=== PATIENT | female | born 1955 | race Caucasian/White ===

== ENCOUNTER 2019-06-11 00:09 | Emergency (ER) | payer MEDICARE, OTHER, SELFPAY ==
[2019-06-11 00:56] VITALS: BP 164/93; PULSE 88; RESP 16; TEMP 36.6; O2SAT 95
--- NOTE | 2019-06-11 01:22 | ED.EPISTAXIS ---
HPI - Epistaxis General Chief complaint: Epistaxis Stated complaint: nose bleed Time Seen by Provider: 06/11/19 01:15 Source: patient and RN notes reviewed Mode of arrival: ambulatory Limitations: no limitations History of Present Illness HPI Narrative: A 64 y/o female presents to the ED with constant epistaxis for the past 8 hours. She states that she was placed on Warfarin 4 days ago for her recently dx a-fib and that everyday since she has had epistaxis. She reports that the past days she has been able to get the epistaxis to stop, but that today she couldn't so she decided to come to the ED. She notes a mild dry cough and some lightheadedness when she goes from sitting to standing. She also notes she has used a nose clamp but denies it alleviating her epistaxis. She also denies any rhinorrhea, fevers, chills, sweats, SOB, or CP. complaint: epistaxis Onset (ago): hour(s) (8) Duration: constant Context: history of previous and warfarin use Associated symptoms: other (mild dry cough and lightheadedness when going from sitting to standing) Treatment prior to arrival: nasal clamp Related Data Home Medications Medication Instructions Recorded Confirmed metoprolol succinate 100 mg 100 mg PO DAILY 04/05/19 05/26/19 tablet,extended release 24 hr venlafaxine 75 mg tablet 75 mg PO BID 04/05/19 05/26/19 Allergies Allergy/AdvReac Type Severity Reaction Status Date / Time tramadol Allergy Unknown emesis Verified 05/26/19 15:00 Review of Systems Review of Systems: All systems reviewed & are unremarkable except as noted in HPI and below Constitutional: Constitutional: Denies chills, Denies fever(s) and Denies other (sweats) ENT: Reports epistaxis and Denies nasal discharge Cardiovascular: Cardiovascular: Denies chest pain and Reports lightheadedness (when going from sitting to standing) Respiratory: Respiratory: Reports cough (mild dry) and Denies dyspnea PMFSH Past Medical History Medical History (Updated 06/11/19 @ 03:06 by Erik Amin MD) A-fib Anxiety Bronchitis Depression Endometriosis Essential hypertension GERD (gastroesophageal reflux disease) H/O: HTN (hypertension) History of rectal polyps Hypersomnia Mixed hyperlipidemia Moderate episode of recurrent major depressive disorder Obesity PAF (paroxysmal atrial fibrillation) Psychophysiological insomnia Right wrist fracture Sinusitis, chronic Subacute sinusitis Surgical History Surgical History (Updated 06/11/19 @ 01:51 by Rodney Scott) History of cholecystectomy History of lumpectomy of right breast History of tonsillectomy Hx of hysterectomy Family History Family History (Updated 07/14/17 @ 14:14 by DOCTOR UNKNOWN) Mother Family history of malignant neoplasm, Onset Age: 64 Father FH myocardial infarction male first degree age known, Onset Age: 75 Social History Social History (Updated 05/06/19 @ 10:06 by Angelika Schaefer) Smoking status: Never smoker Second hand tobacco smoke exposure: No Alcohol intake: never Substance use: never Substance use type: does not use Gender identity (if verbalized by the patient): Female Exam Narrative: Exam Narrative: GENERAL: Well-appearing, well-nourished, and in no acute distress. HEAD: Normocephalic, atraumatic. ENT: Mucous membranes moist. Trace oozing of blood from the left naris. EXTREMITIES: Normal range of motion. Normal strength. NEURO: Alert and oriented x3. PSYCH: Normal mood and affect. Course Course Emergency Course: Bleeding stopped with direct pressure and Afrin administration. Discussed problem solving nosebleeds as well as holding her Coumadin until contacting Dr. Fernández's office and having repeat INR drawn on Thursday. Consultations Consultation #1: Discussed case with Dr. Fernández (Cardiology). Suggests that the pt stop the Warfarin and call their office to have a follow up INR on Thursday. Date: 06/11/19 Time: 02:51 Vital Signs Vital signs: Vital S
[2019-06-11] MEDS: OXYMETAZOLINE HCL 0.05% NAS 15 ML BTL (*BKC) 1 SPRAY (01:35)
[2019-06-11 02:19] LABS: Basophils Absolute Auto 0.1 K/mm3 (0.0-0.1); Basophils Percent Auto 0.4 % (0.2-1.2); Eosinophils Absolute Auto 0.2 K/mm3 (0-0.3); Eosinophils Percent Auto 1.4 % (0-4.4); Hematocrit 42.1 % (37.0-47.0); Hemoglobin 13.6 g/dL (12.0-15.0); Immature Granulocyte Absolute 0.08 K/mm3 (0.00-0.031); Immature Granulocyte Percent A 0.5 % (0-0.5); Lymphocytes Absolute Auto 4.43 K/mm3 (0.9-3.2); Lymphocytes Percent Auto 27.6 % (18.3-44.2); Mean Corpuscular HGB Conc 32.3 g/dl (32-36); Mean Corpuscular Hemoglobin 29.6 pg (26-34); Mean Corpuscular Volume 91.5 fl (80-100); Monocytes Absolute Auto 1.7 K/mm3 (0.1-0.6); Monocytes Percent Auto 10.5 % (2.6-8.5); Neutrophils Absolute Auto 9.6 K/mm3 (1.3-6.7); Neutrophils Percent Auto 59.6 % (45.5-73.1); Platelet Count Result 332 k/mm3 (150-375); Red Cell Distribution Width 13.1 % (11.5-14.5); White Blood Count 16.1 K/mm3 (4.5-10.0)
[2019-06-11 02:29] LABS: INR 4.9; Prothrombin Time 45.4 Seconds (11.1-14.7)
[2019-06-11 02:30] LABS: Blood Urea Nitrogen 25 mg/dL (7-17); Calcium 9.1 mg/dL (8.4-10.2); Carbon Dioxide 31 mmol/L (22-30); Chloride 99 mmol/L (98-107); Estimated Glomerular Filt Rate > 60; Glucose 90 mg/dL (65-105); Potassium 3.6 mmol/L (3.4-5.0); Sodium 140 mmol/L (137-145)
[2019-06-11 02:38] VITALS: BP 146/88; PULSE 94; RESP 16; O2SAT 95
== END 2019-06-11 03:24 | disposition home or self-care (01) ==
PROVIDERS: Emergency Provider Emergency Medicine; PCP Family Medicine
DX: R04.0 Epistaxis (principal); T45.515A Adverse effect of anticoagulants, initial encounter; I48.0 Paroxysmal atrial fibrillation; F41.9 Anxiety disorder, unspecified; F32.9 Major depressive disorder, single episode, unspecified; I10 Essential (primary) hypertension; N80.9 Endometriosis, unspecified; E78.2 Mixed hyperlipidemia; E66.9 Obesity, unspecified; K21.9 Gastro-esophageal reflux disease without esophagitis
CPT/HCPCS: 36415; 80048; 85025; 85610; 99283; A9270

== ENCOUNTER 2019-06-15 15:12 | Outpatient (CLI) | payer MEDICARE, OTHER, SELFPAY ==
[2019-06-15 16:05] LABS: INR 1.2; Prothrombin Time 14.4 Seconds (11.1-14.7)
== END 2019-06-15 15:13 | disposition home or self-care (01) ==
PROVIDERS: PCP Family Medicine; Visit Provider Internal Medicine Cardiovascular Disease
DX: I48.0 Paroxysmal atrial fibrillation (principal)
CPT/HCPCS: 36415; 85610

== ENCOUNTER 2019-06-24 08:44 | Outpatient (CLI) | payer MEDICARE, OTHER, SELFPAY ==
--- NOTE | 2019-07-11 20:42 | SLEEP_ITS ---
Nocturnal Polysomnogram. DATE OF STUDY: 06/24/2019 ORDERING PHYSICIAN: Tigre Fernández D.O. REASON FOR THIS STUDY: Hypersomnia. HISTORY: This patient is a 64-year-old female, 65 inches tall, weighing 240 pounds with a body mass index of 39.9. She has a history of sleeping 8 hours at night, but waking often at night. She feels exhausted during the daytime. Her brother and sister, both have sleep apnea. She uses prescription, Ambien to help with the quality of sleep, but it is not helping. She constantly awakens from sleep short of breath, constantly snoring and the snoring is loud enough that others complain about it. She rarely awakens with heartburn or belching. She constantly has trouble sleeping with a cold, constantly gasps for breath at night, constantly has breathing problems witnessed by others. She frequently sweats excessively at night and notices her heart pounding or beating irregularly at night. She constantly falls asleep during the day, rarely involuntarily, never while driving, never with physical effort and she does not fall asleep with laughing or crying. She does not have loss of muscle tone with strong emotion. She does not have daytime difficulties due to excessive sleepiness, as she is currently retired. She does not feel paralyzed on waking or falling asleep. She rarely has vivid dreamlike scenes upon awakening or falling asleep. She rarely is afraid to go to sleep. She occasionally has nightmares. She rarely remembers her dreams, rarely has racing thoughts, occasionally has sadness, depression and anxiety. She occasionally has muscular tension and notices parts of her body jerking. She occasionally kicks at night. She rarely has crawling and aching feelings in her legs. She occasionally has leg pain at night. She rarely has morning jaw pain, rarely grinds her teeth at night, rarely is bothered by pain during the day or is awakened with pain at night. She occasionally wakes up feeling stiff in the morning with sore achy muscles. She occasionally has pain in her neck and spine. She has fatigue, takes sedatives, has memory problems and insomnia. She has depression. She goes to bed at midnight using Ambien, which helps her fall asleep within 15 minutes, waking once or twice at night. If she awakens at night, she will stay in bed or turn on the television. She wakes in the morning at 09:00 a.m. On the weekends, she goes to bed at 01:00 a.m., and wakes at 10:00 a.m. She does take naps. A short naps are not refreshing. She is drowsy in the morning for 3 hours or longer. MEDICAL COMORBIDITIES: Depression, hypertension, insomnia, nasal allergies, heart disease. MEDICATIONS: 1. Venlafaxine 75 mg a day. 2. Toprol-XL 100 mg a day. 3. Zolpidem 10 mg at night. 4. Lisinopril 12.5/20 one daily. HABITS: Never smoked tobacco. Caffeine, 3 servings per day. No alcohol. DESCRIPTION OF THE STUDY: On the [place] Sleepiness Scale, her score is 6. This was conducted as a basic nocturnal polysomnogram using the ProPerforma multiple channel system including EOG, EEG, submental EMG, EKG, nasal and oral airflow using thermistors and nasal pressure sensors, chest and abdominal belts, body position data and pulse oximetry. This study was scored using CMS guidelines. Duration of the study was 419.1 minutes. Sleep time was 306.8 minutes. Sleep efficiency was 73.2%. Sleep latency was prolonged at 46.4 minutes. There was no REM. The patient had 33 awakenings and spent 17.7% of the study awake after sleep onset, 66 minutes. Sleep architecture showed 11.7% stage 1 sleep, 70.6% stage 2 sleep, no stage 3 sleep, and no stage REM. Sleep architecture was abnormal with a prolonged sleep latency, mainly stage 2 sleep with constant shifts between stage I, stage II, and
== END 2019-06-24 08:45 | disposition home or self-care (01) ==
LOC: ANHCSM 08:45
PROVIDERS: PCP Family Medicine; Visit Provider Internal Medicine Cardiovascular Disease
DX: G47.33 Obstructive sleep apnea (adult) (pediatric) (principal)
CPT/HCPCS: 95810

== ENCOUNTER 2020-01-25 02:33 | Outpatient (CLI) | payer MEDICARE, OTHER, SELFPAY ==
[2020-01-25 18:24] LABS: SARS-CoV-2 RNA PCR Negative
== END 2020-01-25 02:34 | disposition home or self-care (01) ==
LOC: ANHCOVIDDT 02:34
PROVIDERS: PCP Family Medicine; Visit Provider Internal Medicine Critical Care Medicine
DX: Z20.828 Contact with and (suspected) exposure to other viral communicable diseases (principal)
CPT/HCPCS: 87635; C9803; U0003

== ENCOUNTER 2020-01-27 05:47 | Outpatient (CLI) | payer MEDICARE, OTHER, SELFPAY ==
--- NOTE | 2020-02-25 12:49 | WPDSLEEPSTUD ---
Sleep Study Date of Study: 01/27/20 Ordering Provider: Tigre Fernández DO Interpreting Physician: Ada Aguilar MD Sleep Study Type: CPAP Titration Height: 1.65 m Weight: 114.305 kg Body Mass Index: 41.9 [place]: 6 Reason for Sleep Study June 24, 2019 basic nocturnal polysomnogram showing moderate obstructive sleep apnea with an AHI of 24.7 with absence of REM, desaturation 85%. Sleep History Tiffanie Cantu is a 65-year-old female with a history of a (+) basic study in May,. She has a history of sleeping 8 hours at night, but waking often at night. She feels exhausted during the daytime. Her brother and sister, both have sleep apnea. She has used prescription Ambien to help with the quality of sleep, but it is not helping. She constantly awakens from sleep short of breath, constantly snoring and the snoring is loud enough that others complain about it. She rarely awakens with heartburn or belching. She constantly has trouble sleeping with a cold, constantly gasps for breath at night, constantly has breathing problems witnessed by others. She frequently sweats excessively at night and notices her heart pounding or beating irregularly at night. She constantly falls asleep during the day, rarely involuntarily, never while driving, never with physical effort and she does not fall asleep with laughing or crying. She does not have loss of muscle tone with strong emotion. She does not have daytime difficulties due to excessive sleepiness, as she is currently retired. She does not feel paralyzed on waking or falling asleep. She rarely has vivid dreamlike scenes upon awakening or falling asleep. She rarely is afraid to go to sleep. She occasionally has nightmares. She rarely remembers her dreams, rarely has racing thoughts, occasionally has sadness, depression and anxiety. She occasionally has muscular tension and notices parts of her body jerking. She occasionally kicks at night. She rarely has crawling and aching feelings in her legs. She occasionally has leg pain at night. She rarely has morning jaw pain, rarely grinds her teeth at night, rarely is bothered by pain during the day or is awakened with pain at night. She occasionally wakes up feeling stiff in the morning with sore achy muscles. She occasionally has pain in her neck and spine. She has fatigue, takes sedatives, has memory problems and insomnia. She has depression. She goes to bed at midnight using Ambien, which helps her fall asleep within 15 minutes, waking once or twice at night. If she awakens at night, she will stay in bed or turn on the television. She wakes in the morning at 09:00 a.m. On the weekends, she goes to bed at 01:00 a.m., and wakes at 10:00 a.m. She does take naps. A short naps are not refreshing. She is drowsy in the morning for 3 hours or longer. HABITS: Never smoked tobacco. Caffeine, 3 servings per day. No alcohol. [facility] Past Medical History Medical History (Updated 02/25/20 @ 13:15 by Ada Aguilar MD) A-fib Anxiety Bronchitis Depression Endometriosis Essential hypertension GERD (gastroesophageal reflux disease) H/O: HTN (hypertension) History of rectal polyps Hypersomnia Mixed hyperlipidemia Moderate episode of recurrent major depressive disorder Obesity Obstructive sleep apnea (~05/2019) PAF (paroxysmal atrial fibrillation) Psychophysiological insomnia Right wrist fracture Sinusitis, chronic Sleep disorder Subacute sinusitis Surgical History Surgical History History of cholecystectomy History of lumpectomy of right breast History of tonsillectomy Hx of hysterectomy Family History Family History Mother Family history of malignant neoplasm, Onset Age: 64 Father FH myocardial infarction male first degree age known, Onset Age: 75 Social History Social History (Reviewed 02/25/20 @ 12:55 by Lashonda
[2020-02-25 13:28] VITALS: BMI 41.9
== END 2020-01-27 05:48 | disposition home or self-care (01) ==
PROVIDERS: PCP Family Medicine; Visit Provider Internal Medicine Cardiovascular Disease
DX: G47.33 Obstructive sleep apnea (adult) (pediatric) (principal)
CPT/HCPCS: 95811

== ENCOUNTER → 2020-09-25 14:53 | Outpatient (CLI) | payer MEDICARE, OTHER, SELFPAY ==
--- NOTE | ~2020-09-25 | MM_ITS ---
EXAMINATION: MM screening juan BI w lexis HISTORY: Screening TECHNIQUE: Craniocaudal and mediolateral oblique 3-D tomosynthesis images were obtained and synthetic 2-D images were generated. CAD analysis was submitted and interpreted. COMPARISON: Comparison to multiple prior studies sequentially, with oldest reviewed study dated 08/19. BREAST PARENCHYMAL COMPOSITION: The breasts are heterogeneously dense, which may obscure small masses . FINDINGS: There is no evidence of suspicious mass, calcification, or architectural distortion to sugg est malignancy in either breast. There has been no suspicious interval change. IMPRESSION: 1. No mammographic evidence of malignancy. 2. Recommend routine screening mammography in one year. BI-RADS Category 1: Negative Reviewed, dictated and finalized at location A.
== END ==
PROVIDERS: PCP Family Medicine; Visit Provider Physician Assistant
DX: Z12.31 Encounter for screening mammogram for malignant neoplasm of breast (principal)
CPT/HCPCS: 77063; 77067

== ENCOUNTER → 2020-11-26 14:52 | Outpatient (CLI) | payer MEDICARE, OTHER, SELFPAY ==
--- NOTE | ~2020-11-26 | XR_ITS ---
XR chest 2V DATE: 11/26/2020 15:50 INDICATION: Cough TECHNIQUE: 2 views COMPARISON: 01/15/2019 PA and lateral chest 01/15/2019 CT pulmonary scan FINDINGS: Normal heart size. There is aortic unfolding. No hilar or mediastinal enlargement. No pulmonary infiltrate or consolidation, pleural effusion or pulmonary vascular congestion or pneumo thorax. Degenerative spurring of the thoracic spine. IMPRESSION: No active cardiopulmonary disease Reviewed, dictated and finalized at location B.
== END ==
PROVIDERS: PCP Family Medicine; Visit Provider Physician Assistant
DX: R05 Cough (principal)
CPT/HCPCS: 71046

== ENCOUNTER 2021-01-21 16:59 | Emergency (ER) | payer MEDICARE, OTHER, SELFPAY ==
[2021-01-21 17:21] VITALS: BP 131/93; PULSE 54; RESP 18; TEMP 36.1; O2SAT 99
--- NOTE | 2021-01-21 18:51 | ED.URI ---
HPI - URI/Sore Throat General Chief Complaint: Upper Respiratory Infection Stated Complaint: Runny Nose, Cough Source: patient and RN notes reviewed Limitations: no limitations History of Present Illness HPI Narrative: The vaccinated patient, non-smoker/nondrinker, presents with a couple day history of cough, scratchy throat. No fever measured, wheezing, earache;no loss of taste/smell, CP, vomiting/diarrhea,S OB. Symptoms are mild unrelieved with OTC preparations like Flonase, and she has allergy triggers [a pet ] at home Related Data Home Medications Medication Instructions Recorded Confirmed cetirizine 10 mg tablet 10 mg PO DAILY PRN 05/10/20 01/21/21 Allergies Allergy/AdvReac Type Severity Reaction Status Date / Time tramadol Allergy Unknown emesis Verified 11/06/20 15:55 lisinopril AdvReac Intermediate cough Uncoded 11/06/20 15:55 Review of Systems Review of Systems: General/Constitutional: No weight loss,fever Eyes: N0: Redness,discharge Ears/Nose/Throat: No: Epistaxis,ear discharge Respiratory: Denies: Hemoptysis Gastrointestinal: No Vomiting, Bleeding-rectal Skin: No Lumps, eruption Neurologic: No Focal Weakness,Sz Hematologic: Denies: Petechiae/Purpura Psychiatric: No: Suicida ideationl All Other Systems: Reviewed and Negative [facility] Past Medical History Medical History (Updated 01/21/21 @ 18:54 by Leonardo Zhou MD) A-fib Anxiety BMI 39.0-39.9,adult Bronchitis Depression Endometriosis Essential hypertension GERD (gastroesophageal reflux disease) H/O: HTN (hypertension) History of rectal polyps Hypersomnia Mixed hyperlipidemia Moderate episode of recurrent major depressive disorder Obesity Obstructive sleep apnea (01/2020) PAF (paroxysmal atrial fibrillation) Psychophysiological insomnia Right wrist fracture Sinusitis, chronic Sleep disorder Subacute sinusitis Surgical History Surgical History History of cholecystectomy History of lumpectomy of right breast History of tonsillectomy Hx of hysterectomy Family History Family History Mother Family history of malignant neoplasm, Onset Age: 64 Father FH myocardial infarction male first degree age known, Onset Age: 75 Social History Social History (Updated 11/06/20 @ 15:56 by Angelika Toro Social History: Smoking status: Never smoker Second hand tobacco smoke exposure: No Alcohol intake: never Substance use: never Substance use type: does not use Gender identity (if verbalized by the patient): Female Sexual Orientation (if Verbalized by the Patient): Straight or Heterosexual Comments At time of signature, agree with nursing past medical, surgical, social and family history. There is no relevant family history pertinent to the presenting complaint Exam Narrative: General Appearance: Well appearing, overweight/well nourished EYE: PERRLA, Conjunctiva clear Ears: Auditory canal normal, TM normal Nose: Rhinorrhea, Mucousal erythema Mouth/Throat: MM moist, Uvula midline, Pharyngeal erythema Neck: Supple, No adenopathy Respiratory: No respiratory distress, distant BS equal, CTA decreased at bases Cardiovascular: No JVD Musculoskeletal: Non tender, Normal strength Skin: Warm, Dry Neurological: A&O x3, CN II-XII intact Psychiatric: Normal mood, Normal affect Course Vital Signs Vital signs: Vital Signs Temperature 97.0 F L 01/21/21 17:21 Pulse Rate 54 L 01/21/21 17:21 Respiratory Rate 18 01/21/21 17:21 Blood Pressure 131/93 H 01/21/21 17:21 Pulse Oximetry 99 01/21/21 17:21 Temperature 97.0 F L 01/21/21 17:21 Pulse Rate 54 L 01/21/21 17:21 Respiratory Rate 18 01/21/21 17:21 Blood Pressure 131/93 H 01/21/21 17:21 Pulse Oximetry 99 01/21/21 17:21 MDM - URI/Sore Throat Lab Data Labs: Lab Results 01/21/21 Range/Units 18:23
== END 2021-01-21 19:03 | disposition home or self-care (01) ==
PROVIDERS: Emergency Provider Emergency Medicine; PCP Family Medicine
DX: R05 Cough (principal); I48.91 Unspecified atrial fibrillation; I10 Essential (primary) hypertension; E78.2 Mixed hyperlipidemia; Z20.822 Contact with and (suspected) exposure to COVID-19
CPT/HCPCS: 87426; 99213; C9803; G0463

== ENCOUNTER 2021-02-15 07:47 | Outpatient (CLI) | payer MEDICARE, OTHER, SELFPAY ==
--- NOTE | 2021-03-04 14:26 | WPDSLEEPSTUD ---
Sleep Study Date of Study: 02/15/21 <Tori Stevens DO - Last Filed: 03/04/21 15:56> Ordering Provider: Tigre Fernández DO <Tori Stevens, - Last Filed: 03/04/21 15:56> Interpreting Physician: Tori Stevens DO <Tori Stevens, - Last Filed: 03/04/21 15:56> Sleep Study Type: Split Polysomnogram <Tori Stevens - Last Filed: 03/04/21 15:56> Height: 1.65 m <Tori Stevens - Last Filed: 03/04/21 15:56> Weight: 108.862 kg <Tori Stevens - Last Filed: 03/04/21 15:56> Body Mass Index: 39.9 <Tori Stevens - Last Filed: 03/04/21 15:56> Neck Circumference (inches): 14 <Tori Stevens - Last Filed: 03/04/21 15:56> [place]: 7 <Tori Stevens - Last Filed: 03/04/21 15:56> Reason for Sleep Study The patient has loud snoring, witnessed apneas and multiple nighttime awakenings. <Tori Stevens, Last Filed: 03/04/21 15:56> Sleep History The patient is a 66-year-old female with hypertension, atrial fibrillation, depression and previously diagnosed DANE that had a Split Night study ordered sleep disturbances. The patient had a PSG on 06/24/2019 that showed an AHI of 24.7 and an elevated limb movement index. She had a PAP Titration study on 01/27/2020 where she was recommended a prescription of CPAP 12 cm H2O with an EPR of 2. The patient stopped using the machine because she didn't like the mask she was given. The patient states that she wakes up several times per night from snoring and apneas. She states that this happens almost every night for the past several months. She constantly awakens from sleep short of breath. She constantly awakens at night with heartburn, belching or cough. She constantly snores loud enough that others complain. She constantly has troubles when she has a cold. She constantly wakes up gasping for air throughout the night. She constantly has breathing problems at night observed by others. She denies sweating excessively at night. She occasionally has heart palpitations or irregular heartbeats during the night. She frequently falls asleep during the day but never while driving. She denies sleep paralysis and cataplexy. She rarely experiences vivid dreamlike scenes upon awakening or falling asleep. She rarely has nightmares. She occasionally feels sad or depressed. She rarely has anxiety. She occasionally notices parts of her body jerk. He occasionally kicks during the night. She denies having crawling and aching feelings in her legs but rarely has leg pain during the night. She denies grinding her teeth during sleep when awakening with jaw pain morning. She denies being bothered by pain during the day and being awakened by pain during the night. He rarely wakes up feeling stiff morning with sore and achy muscles. She goes to bed at 2:00 a.m. on both the weekdays and weekends. It takes her about 10 minutes to fall asleep. She wakes up 1-2 times per night for unknown reasons. It takes her about 10 minutes to fall asleep. She wakes up at 10:00 a.m. on the weekdays and at noon the weekends. She typically gets 8 hours of sleep per night. She will stay in bed for 10 minutes after waking up. She is currently . She lives with her sister and 2 teenagers. She consumes caffeinated beverages within 2 hours of going to sleep. She does not engage in physical exercise before bedtime. She will read and watch television before falling asleep. She will take naps during the afternoon or the evening but they refreshing. She drinks 2-3 caffeinated teas per day. She denies tobacco, alcohol and recreational drug use. <Tori Stevens DO - Last Filed: 03/04/21 15:56> [facility] Past Medical History Medical History: Medical History A-fib Anxiety BMI 39.0-39.9,adult Bronchitis Depression Endometriosis Essential
[2021-03-04 14:48] VITALS: BMI 39.9
== END 2021-02-16 07:45 | disposition home or self-care (01) ==
LOC: ANHCSM 07:48
PROVIDERS: PCP Family Medicine; Visit Provider Internal Medicine Cardiovascular Disease
DX: G47.33 Obstructive sleep apnea (adult) (pediatric) (principal); I48.0 Paroxysmal atrial fibrillation
CPT/HCPCS: 95811

== ENCOUNTER 2021-08-12 08:55 | Outpatient (CLI) | payer MEDICARE, OTHER, SELFPAY ==
--- NOTE | ~2021-08-12 | NM_ITS ---
EXAMINATION: NM gaby stress w perfusion DATE: 08/12/2021 10:52 INDICATION: Other chest pain. TECHNIQUE: Rest images were obtained following intravenous administration of 10.2 mCi Tc99m tetrofosm in (Myoview). The patient was infused intravenously with Lexiscan (regadenoson). Then, 29.48 mCi Tc99 m tetrofosmin (Myoview) was administered intravenously, and stress images were obtained. Data was rec onstructed into short axis and horizontal and vertical long axis SPECT images. Gated SPECT images wer e also obtained. COMPARISON: Chest CT 01/15/2019, chest 2 views 11/26/2020 FINDINGS: There is no definite reversible or fixed perfusion abnormality to suggest ischemia or infar ction. There is no segmental wall motion abnormality. Left ventricular ejection fraction measures > 70%. IMPRESSION: 1. No definite ischemia or infarct. 2. Normal left ventricular ejection fraction measuring >70%. Reviewed, dictated and finalized at location B.
--- NOTE | 2021-08-12 09:06 | EST_ITS ---
Patient Info Name: Tiffanie Cantu Age: 66 years : 1955 Gender: Female Ht: 65 in Wt: 225 lbs BSA: 2.21 m2 Exam Date: 08/12/2021 9:48 AM Exam Location: [facility] Stress Patient Status: Outpatient Admit Date: 08/12/2021 Staff Ordering Physician: Tigre Fernández DO Attending Provider: Tigre Fernández DO Exercise Technologist: Yesy Garcia RDCS Exercise Physician: Tigre Fernández DO Exam Type: CA stress gaby w NM Study Info Indications R07.9 - Chest pain, unspecified A regadenoson stress test was performed. Summary 1. 1. Negative lexiscan stress test for ischemic ST changes by ECG criteria. 2. 2. Baseline hypertension. 3. 3. Nuclear scan to follow and will be reported separately. Please correlate with it. 4. 4. Patient informed of the above results. Protocol: Lexiscan Stress ECG Details Stage: REST Duration (min): 5 min : 18 sec HR (bpm): 63 SBP (mmHg): 147 DBP (mmHg): 94 Stage: REST Duration (min): 5 min : 33 sec HR (bpm): 67 SBP (mmHg): 147 DBP (mmHg): 94 Stage: REST Duration (min): 17 min : 28 sec HR (bpm): 65 SBP (mmHg): 147 DBP (mmHg): 94 Stage: STAGE 1 Duration (min): 1 min : 0 sec HR (bpm): 75 SBP (mmHg): 149 DBP (mmHg): 92 Stage: RECOVERY Duration (min): 1 min : 0 sec HR (bpm): 82 SBP (mmHg): 149 DBP (mmHg): 92 Stage: RECOVERY Duration (min): 2 min : 0 sec HR (bpm): 72 SBP (mmHg): 166 DBP (mmHg): 87 Stage: RECOVERY Duration (min): 3 min : 0 sec HR (bpm): 71 SBP (mmHg): 168 DBP (mmHg): 84 Stage: RECOVERY Duration (min): 4 min : 0 sec HR (bpm): 80 SBP (mmHg): 168 DBP (mmHg): 84 Stage: RECOVERY Duration (min): 5 min : 0 sec HR (bpm): 72 SBP (mmHg): 183 DBP (mmHg): 89 Stage: RECOVERY Duration (min): 6 min : 0 sec HR (bpm): 71 SBP (mmHg): 183 DBP (mmHg): 89 Stage: RECOVERY Duration (min): 7 min : 0 sec HR (bpm): 72 SBP (mmHg): 184 DBP (mmHg): 88 Stage: RECOVERY Duration (min): 7 min : 4 sec HR (bpm): 75 SBP (mmHg): 184 DBP (mmHg): 88 Rest HR: 65 bpm Peak HR: 82 bpm Rest Sys BP: 147 mmHg Peak Sys BP: 184 mmHg Max Pred HR: 152 bpm % Max Pred HR: 54 % Target HR: 129 bpm Max RPP: 15,088 bpm*mmHg Termination Reason: Completed protocol Cardiac Symptoms: Shortness of breath Total Time: 1 min : 0 sec Rest Rodriguez BP: 94 mmHg Peak Rodriguez BP: 88 mmHg Total Dose: 0.4 mg Resting ECG Sinus rhythm. Stress ECG No ST changes. Arrhythmias None. Report Signatures
== END 2021-08-12 08:56 | disposition home or self-care (01) ==
PROVIDERS: PCP Family Medicine; Visit Provider Internal Medicine Cardiovascular Disease
DX: R07.89 Other chest pain (principal)
CPT/HCPCS: 78452; 93017; A9502; J2785

== ENCOUNTER → 2022-06-05 13:06 | Outpatient (CLI) | payer MEDICARE, OTHER, SELFPAY ==
--- NOTE | ~2022-06-05 | DEXA_ITS ---
Bone Density Report Name: MARINA EMERSON Age: 67 Sex: Female Ethnicity: White Date of : 1955 Indication: postmenopausal; screening for osteoporosis; height loss; hysterectomy; Referring Provider: CLAUS SHAVER Study: Bone densitometry was performed. Exam Date: June 05, 2022 Accession number: [id number] Bone Density: Region BMD T-score Z-score Classification AP Spine (L1, L2, L3) 1.493 4.3 6.3 Normal Femoral Neck (Left) 0.955 1.0 2.7 Normal Total Hip (Left) 1.027 0.7 2.2 Normal Femoral Neck (Right) 0.993 1.3 3.1 Normal Total Hip (Right) 1.056 0.9 2.4 Normal Total Hip Mean 1.042 0.8 2.3 Normal World Health Organization criteria for BMD impression classify patients as: Normal (T-score at or above -1.0), Osteopenia (T-score between -1.0 and -2.5), or Osteoporosis (T-score at or below -2.5). 10-year Fracture Risk: FRAX not reported because: All T-scores for Spine Total, Hip Total, Femoral Neck at or above -1.0 Clinical Information Provided by Patient: Has the following medical conditions: Hysterectomy Patient maximum height was 65 Menopause Age: 26 No regular weight bearing exercise Does not regularly consume dairy products Drinks caffeinated beverages Onset of menses at age 7 Number of children 0 Impression: The patient has normal bone mass. Discussion: LOW RISK OF FRACTURE; BONE DENSITY IS WELL ABOVE THE MINIMUM DESIRABLE LEVEL AND ABOVE AVERAGE FOR AGE AND SEX AT ALL SKELETAL SITES TESTED. This person's bone density is above expected limits for age and sex. This is rarely clinically significant, but should be pursued if there are significant musculoskeletal complaints. The patient should follow a healthful lifestyle (good nutrition with adequate calcium and vitamin D, and appropriate weight-bearing exercise). Follow-Up: Consider repeating this study in 5 years or sooner if there is some new clinical indication. Reported by: STEPHENIE on 06/05/2022 1:38:00 PM. Reviewed, dictated and finalized at location AGilles MONET
--- NOTE | ~2022-06-05 | MM_ITS ---
EXAMINATION: MM screening [facility] BI w lexis HISTORY: Screening mammogram TECHNIQUE: Craniocaudal and mediolateral oblique 3-D tomosynthesis images were obtained and synthetic 2-D images were generated. CAD analysis was submitted and interpreted. COMPARISON: 09/25/2020 bilateral screening mammogram BREAST PARENCHYMAL COMPOSITION: There are scattered areas of fibroglandular density. FINDINGS: Biopsy marker is noted on the left; history of prior bilateral benign breast biopsies. Scattered bilateral benign calcifications. There is no evidence of suspicious mass, calcification, or architectural distortion to suggest malig tammy in either breast. There has been no suspicious interval change. IMPRESSION: 1. No mammographic evidence of malignancy. 2. Recommend routine screening mammography in one year. BI-RADS Category 2: Benign finding(s). Reviewed, dictated and finalized at location A. ROOM OPERATOR
== END ==
PROVIDERS: PCP Family Medicine; Visit Provider Family Medicine
DX: Z12.31 Encounter for screening mammogram for malignant neoplasm of breast (principal); Z78.0 Asymptomatic menopausal state
CPT/HCPCS: 77063; 77067; 77080

== ENCOUNTER 2022-10-24 16:19 | Outpatient (CLI) | payer MEDICARE, OTHER, SELFPAY ==
--- NOTE | ~2022-10-24 | XR_ITS ---
EXAM: XR abdomen/kub 1V DATE: 10/24/2022 16:36 HISTORY: R31.9 - Hematuria, LOW BACK PAIN X 3 DAYS . COMPARISON: None available. FINDINGS: Clear lung bases. Normal bowel gas pattern. No organomegaly. No abnormal abdominal calcifi cation. Cholecystomy clips. Surgical clips over the right lower abdomen, possible dropped clip. Lumba r degenerative disc disease. Bilateral hip osteoarthritis. IMPRESSION: No radiographic evidence of obstruction or ileus. No radiographic evidence of nephrolithi asis. Consider CT urography for further evaluation of hematuria and pain. Reviewed, dictated and finalized at location K. IMPRESSION: No radiographic evidence of obstruction or ileus. No radiographic e vidence of nephrolithiasis. Consider CT urography for further evaluation of hem aturia and pain.
== END 2022-10-24 16:20 | disposition home or self-care (01) ==
LOC: ANHIMG 16:22
PROVIDERS: PCP Family Medicine; Visit Provider Physician Assistant
DX: R31.9 Hematuria, unspecified (principal); M54.50 Low back pain, unspecified
CPT/HCPCS: 74018

== ENCOUNTER 2023-01-30 00:37 | Day surgery (SDC) | payer MEDICARE, OTHER, SELFPAY ==
[2022-11-24 10:24] VITALS: BMI 36.6
--- NOTE | 2022-11-26 20:58 | PM.HPGS ---
History of Present Illness History of Present Illness Consent: Risks, benefits, and alternatives have been discussed and questions answered. Patient agrees to proceed with procedure. Chief complaint: other fecal abnormalities Narrative: Tiffanie aCntu is a 67 year old female who is referred for colon cancer screening. A cologuard test was + PMFSH Past Medical History Medical History A-fib Anxiety BMI 39.0-39.9,adult Bronchitis Depression Endometriosis Essential hypertension GERD (gastroesophageal reflux disease) H/O: HTN (hypertension) History of rectal polyps Hypersomnia Mixed hyperlipidemia Moderate episode of recurrent major depressive disorder Obesity Obstructive sleep apnea (01/2020) PAF (paroxysmal atrial fibrillation) Psychophysiological insomnia Right wrist fracture Sinusitis, chronic Sleep disorder Subacute sinusitis Surgical History Surgical History History of cholecystectomy History of lumpectomy of right breast History of tonsillectomy Hx of hysterectomy Family History Family History Mother Family history of malignant neoplasm, Onset Age: 64 Father FH myocardial infarction male first degree age known, Onset Age: 75 Social History Social History (Updated 10/24/22 @ 15:02 by Angelika Schaefer) Social History: Smoking status: Never smoker Second hand tobacco smoke exposure: No Alcohol intake: never Substance use: never Substance use type: does not use Lack of Transportation: No Lack of Food: Never True Current Housing: I Have Housing Concerned About Future Housing: No Difficulty Paying Gas/Electric Bills: No Difficulty Paying for Meds: No Currently Unemployed: YES Education: Decline to Answer Difficulty w/ Childcare or Family Care: No Living arrangements: with family Occupation/Education: retired Gender identity (if verbalized by the patient): Female Sexual Orientation (if Verbalized by the Patient): Straight or Heterosexual Spiritual care concerns: No Meds Home Medications and Allergies Home Medications Medication Instructions Recorded Confirmed Type flecainide 50 mg tablet 50 mg PO Q12H #60 tabs 08/25/22 11/24/22 Rx metoprolol succinate 25 mg 25 mg PO DAILY #90 tabs 08/25/22 11/24/22 Rx tablet,extended release 24 hr irbesartan 300 mg tablet 300 mg PO DAILY #90 tabs 10/24/22 11/24/22 Rx rivaroxaban 20 mg tablet (Xarelto) 20 mg PO QPM #90 tabs 11/04/22 11/24/22 Rx zolpidem 10 mg tablet 10 mg PO QHS #30 tabs 11/06/22 11/24/22 Rx hydrochlorothiazide 12.5 mg tablet 12.5 mg PO DAILY 11/24/22 11/24/22 History omeprazole 20 mg capsule,delayed 20 mg PO BID 11/24/22 11/24/22 History release pravastatin 10 mg tablet 10 mg PO DAILY 11/24/22 11/24/22 History venlafaxine 75 mg capsule,extended 75 mg PO DAILY 11/24/22 11/24/22 History release 24 hr Allergies Allergy/AdvReac Type Severity Reaction Status Date / Time tramadol AdvReac Intermediate emesis Verified 11/24/22 10:25 lisinopril AdvReac Intermediate cough Uncoded 11/24/22 10:25 Assessment and Plan Assessment and plan (1) Colon cancer screening: Code(s): Z12.11 - Encounter for screening for malignant neoplasm of colon Status: Acute Assessment and Plan: Colonoscopy with possible biopsy or polypectomy or cautery or injection of substances.
[2023-01-21 14:44] VITALS: BMI 36.6
--- NOTE | 2023-01-29 15:30 | PM.HPGS ---
History of Present Illness History of Present Illness Consent: Risks, benefits, and alternatives have been discussed and questions answered. Patient agrees to proceed with procedure. Chief complaint: other fecal abnormalities Narrative: Tiffanie Cantu is a 68 year old female Who has a history of polyps was referred now for diagnostic colonoscopy. She recently underwent a Cologuard test which was positive. Review of Systems Review of Systems: All systems reviewed & are unremarkable except as noted in HPI and below PMFSH Past Medical History Medical History A-fib Anxiety BMI 39.0-39.9,adult Bronchitis Depression Endometriosis Essential hypertension GERD (gastroesophageal reflux disease) H/O: HTN (hypertension) History of rectal polyps Hypersomnia Mixed hyperlipidemia Moderate episode of recurrent major depressive disorder Obesity Obstructive sleep apnea (01/2020) PAF (paroxysmal atrial fibrillation) Psychophysiological insomnia Right wrist fracture Sinusitis, chronic Sleep disorder Subacute sinusitis Surgical History Surgical History History of cholecystectomy History of lumpectomy of right breast History of tonsillectomy Hx of hysterectomy Family History Family History Mother Family history of malignant neoplasm, Onset Age: 64 Father FH myocardial infarction male first degree age known, Onset Age: 75 Social History Social History Social History: Smoking status: Never smoker Second hand tobacco smoke exposure: No Alcohol intake: never Substance use: never Substance use type: does not use Lack of Transportation: No Lack of Food: Never True Current Housing: I Have Housing Concerned About Future Housing: No Difficulty Paying Gas/Electric Bills: No Difficulty Paying for Meds: No Currently Unemployed: YES Education: Decline to Answer Difficulty w/ Childcare or Family Care: No Living arrangements: alone Occupation/Education: retired Gender identity (if verbalized by the patient): Female Sexual Orientation (if Verbalized by the Patient): Straight or Heterosexual Spiritual care concerns: No Meds Home Medications and Allergies Home Medications Medication Instructions Recorded Confirmed Type flecainide 50 mg tablet 50 mg PO Q12H #60 tabs 08/25/22 01/21/23 Rx metoprolol succinate 25 mg 25 mg PO DAILY #90 tabs 08/25/22 01/21/23 Rx tablet,extended release 24 hr irbesartan 300 mg tablet 300 mg PO DAILY #90 tabs 10/24/22 01/21/23 Rx rivaroxaban 20 mg tablet (Xarelto) 20 mg PO QPM #90 tabs 11/04/22 01/21/23 Rx pravastatin 10 mg tablet 10 mg PO DAILY 11/24/22 01/21/23 History venlafaxine 75 mg capsule,extended 75 mg PO DAILY 11/24/22 01/21/23 History release 24 hr omeprazole 20 mg capsule,delayed 20 mg PO BID #180 caps 12/12/22 01/21/23 Rx release amlodipine 5 mg tablet 5 mg PO DAILY #30 tabs 01/06/23 01/21/23 Rx zolpidem 10 mg tablet 10 mg PO QHS #30 tabs 01/06/23 01/21/23 Rx hydrochlorothiazide 12.5 mg tablet 12.5 mg PO DAILY #100 tabs 01/23/23 01/30/23 Rx Allergies Allergy/AdvReac Type Severity Reaction Status Date / Time tramadol AdvReac Intermediate emesis Verified 01/30/23 11:43 lisinopril AdvReac Intermediate cough Uncoded 01/21/23 14:35 Exam Const: General: alert Orientation/consciousness: patient oriented x3 Resp: Auscultation: clear to auscultation bilaterally Cardio: Rhythm: regular rhythm GI: GI Palp: Yes Soft to palpation and No Tenderness to palpation present (GI) Neuro: General: patient oriented x3 Assessment and Plan Assessment and plan (1) Colon cancer screening: Code(s): Z12.11 - Encounter for screening for malignant neoplasm of colon Status: Acute Assessment and Plan
[2023-01-30 11:44] VITALS: BP 139/92; PULSE 89; RESP 18; TEMP 36.3; O2SAT 97
[2023-01-30] MEDS: LACTATED RINGERS 1,000 ML 150 ML IV CONT (12:06)
--- NOTE | 2023-01-30 12:31 | WPDANESEPPF ---
Anes - Initial Pre Proc Eval Procedure: Operation Date: 01/30/23 13:00 Proposed Procedures p Colonoscopy - Ramon Rawls MD Date/Time: 01/30/23 12:31 Surgeon: Ramon Rawls MD Pre Op Diagnosis: other fecal abnormalities Patient Data Age: 68 Gender: F Height: 1.65 m Weight: 101.9 kg Last Vital Signs Temp 97.4 F L 01/30/23 11:44 Pulse 89 01/30/23 11:44 Resp 18 01/30/23 11:44 BP 139/92 H 01/30/23 11:44 Pulse Ox 97 01/30/23 11:44 O2 Del Method Room Air 01/30/23 11:44 Allergies Allergy/AdvReac Type Severity Reaction Status Date / Time tramadol AdvReac Intermediate emesis Verified 01/30/23 11:43 lisinopril AdvReac Intermediate cough Uncoded 01/21/23 14:35 Home Medications Medication Instructions Recorded Confirmed Type flecainide 50 mg tablet 50 mg PO Q12H #60 tabs 08/25/22 01/21/23 Rx metoprolol succinate 25 mg 25 mg PO DAILY #90 tabs 08/25/22 01/21/23 Rx tablet,extended release 24 hr irbesartan 300 mg tablet 300 mg PO DAILY #90 tabs 10/24/22 01/21/23 Rx rivaroxaban 20 mg tablet (Xarelto) 20 mg PO QPM #90 tabs 11/04/22 01/21/23 Rx pravastatin 10 mg tablet 10 mg PO DAILY 11/24/22 01/21/23 History venlafaxine 75 mg capsule,extended 75 mg PO DAILY 11/24/22 01/21/23 History release 24 hr omeprazole 20 mg capsule,delayed 20 mg PO BID #180 caps 12/12/22 01/21/23 Rx release amlodipine 5 mg tablet 5 mg PO DAILY #30 tabs 01/06/23 01/21/23 Rx zolpidem 10 mg tablet 10 mg PO QHS #30 tabs 01/06/23 01/21/23 Rx hydrochlorothiazide 12.5 mg tablet 12.5 mg PO DAILY #100 tabs 01/23/23 01/30/23 Rx Patient hx anesthesia problems: none Family hx anesthesia problems: none Results Review: All pre-operative results and documents have been reviewed as part of the pre-operative evaluation. [facility] Past Medical History Medical History A-fib Anxiety BMI 39.0-39.9,adult Bronchitis Depression Endometriosis Essential hypertension GERD (gastroesophageal reflux disease) H/O: HTN (hypertension) History of rectal polyps Hypersomnia Mixed hyperlipidemia Moderate episode of recurrent major depressive disorder Obesity Obstructive sleep apnea (01/2020) PAF (paroxysmal atrial fibrillation) Psychophysiological insomnia Right wrist fracture Sinusitis, chronic Sleep disorder Subacute sinusitis Surgical History Surgical History History of cholecystectomy History of lumpectomy of right breast History of tonsillectomy Hx of hysterectomy Family History Family History Mother Family history of malignant neoplasm, Onset Age: 64 Father FH myocardial infarction male first degree age known, Onset Age: 75 Social History Social History Social History: Smoking status: Never smoker Second hand tobacco smoke exposure: No Alcohol intake: never Substance use: never Substance use type: does not use Lack of Transportation: No Lack of Food: Never True Current Housing: I Have Housing Concerned About Future Housing: No Difficulty Paying Gas/Electric Bills: No Difficulty Paying for Meds: No Currently Unemployed: YES Education: Decline to Answer Difficulty w/ Childcare or Family Care: No Living arrangements: alone Occupation/Education: retired Gender identity (if verbalized by the patient): Female Sexual Orientation (if Verbalized by the Patient): Straight or Heterosexual Spiritual care concerns: No Anes - Eval Final PreProcedure Day of Procedure 01/30/23 12:31 Patient weight: obese Heart: regular rate and rhythm Lungs: clear to auscultation Airway: Mallampati scale class III Neurological: alert and oriented Last oral intake: >/= 8 hours ASA classification: III Emergent: no Anesthetic plan: proceed Anesthesia type a
[2023-01-30 13:19] VITALS: BP 114/69; PULSE 72; RESP 14; O2SAT 100
[2023-01-30 13:29] VITALS: BP 137/86; PULSE 69; RESP 24; O2SAT 98
[2023-01-30 13:39] VITALS: BP 146/91; PULSE 66; RESP 23; O2SAT 98
== END 2023-01-30 13:56 | disposition home or self-care (01) ==
PROVIDERS: PCP Family Medicine; Visit Provider Internal Medicine Gastroenterology
PROC: 0DJD8ZZ Inspection of Lower Intestinal Tract, Via Natural or Artificial Opening Endoscopic (ICD-10-PCS; CPT 45378; principal; 2023-01-30 13:00)
DX: Z12.11 Encounter for screening for malignant neoplasm of colon (principal); D12.4 Benign neoplasm of descending colon; D12.2 Benign neoplasm of ascending colon; D12.8 Benign neoplasm of rectum; K64.8 Other hemorrhoids; K57.30 Diverticulosis of large intestine without perforation or abscess without bleeding; R19.5 Other fecal abnormalities; I48.0 Paroxysmal atrial fibrillation; I10 Essential (primary) hypertension; K21.9 Gastro-esophageal reflux disease without esophagitis; E78.2 Mixed hyperlipidemia; F33.1 Major depressive disorder, recurrent, moderate; F41.9 Anxiety disorder, unspecified; G47.33 Obstructive sleep apnea (adult) (pediatric); Z79.01 Long term (current) use of anticoagulants; E66.9 Obesity, unspecified; Z68.37 Body mass index [BMI] 37.0-37.9, adult
CPT/HCPCS: 45385; 88305; J2704; J7120

== ENCOUNTER 2023-02-21 12:21 | Emergency (ER) | payer MEDICARE, OTHER, SELFPAY ==
[2023-02-21 12:30] VITALS: BP 136/97; PULSE 87; RESP 20; TEMP 36.4; O2SAT 96
[2023-02-21 12:38] VITALS: BP 127/93
--- NOTE | 2023-02-21 12:47 | ED.URI ---
HPI - URI/Sore Throat General Chief Complaint: Upper Respiratory Infection Stated Complaint: cough,sore throat,ear drainage Time Seen by Provider: 02/21/23 12:37 Source: patient and RN notes reviewed Mode of arrival: ambulatory Limitations: no limitations History of Present Illness HPI Narrative: Patient presents today complaining of a one-week history cough, sore throat, wheezing, congestion, rhinorrhea. Symptoms have been worsening since onset. Denies fever. She has been using [id number] cough drops, cough medicine without relief. No history of asthma or COPD. She is a nonsmoker. Related Data Home Medications Medication Instructions Recorded Confirmed pravastatin 10 mg tablet 10 mg PO DAILY 11/24/22 02/21/23 venlafaxine 75 mg capsule,extended 75 mg PO DAILY 11/24/22 02/21/23 release 24 hr Allergies Allergy/AdvReac Type Severity Reaction Status Date / Time lisinopril AdvReac Intermediate Cough Verified 02/21/23 12:23 tramadol AdvReac Intermediate emesis Verified 02/21/23 12:23 Review of Systems Review of Systems: CONSTITUTIONAL: Denies body aches, fever, chills, or sweats. EYES: Denies visual changes, redness, or discharge. ENT: Denies otalgia. + congestion, rhinorrhea, sore throat CARDIOVASCULAR: Denies chest pain, palpitations, or edema. RESPIRATORY: Denies dyspnea.+ cough, wheezing GASTROINTESTINAL: Denies abdominal pain, nausea, vomiting, or diarrhea. GENITOURINARY: Denies dysuria or hematuria. SKIN: Denies rash, itching, or wounds. MUSCULOSKELETAL: Denies back pain, joint pain, or myalgia. NEUROLOGIC: Denies headache, numbness, tingling, or weakness. PSYCH: Denies depression or anxiety. [facility] Past Medical History Medical History A-fib Anxiety BMI 39.0-39.9,adult Bronchitis Depression Endometriosis Essential hypertension GERD (gastroesophageal reflux disease) H/O: HTN (hypertension) History of rectal polyps Hypersomnia Mixed hyperlipidemia Moderate episode of recurrent major depressive disorder Obesity Obstructive sleep apnea (01/2020) PAF (paroxysmal atrial fibrillation) Psychophysiological insomnia Right wrist fracture Sinusitis, chronic Sleep disorder Subacute sinusitis Surgical History Surgical History History of cholecystectomy History of lumpectomy of right breast History of tonsillectomy Hx of hysterectomy Family History Family History Mother Family history of malignant neoplasm, Onset Age: 64 Father FH myocardial infarction male first degree age known, Onset Age: 75 Social History Social History Social History: Smoking status: Never smoker Second hand tobacco smoke exposure: No Alcohol intake: never Substance use: never Substance use type: does not use Lack of Transportation: No Lack of Food: Never True Current Housing: I Have Housing Concerned About Future Housing: No Difficulty Paying Gas/Electric Bills: No Difficulty Paying for Meds: No Currently Unemployed: YES Education: Decline to Answer Difficulty w/ Childcare or Family Care: No Living arrangements: alone Occupation/Education: retired Gender identity (if verbalized by the patient): Female Sexual Orientation (if Verbalized by the Patient): Straight or Heterosexual Spiritual care concerns: No Comments At time of signature, I have reviewed and agree with nursing past medical, surgical, social and family history unless otherwise noted. Please see nursing chart for further information. There is no relevant family history pertinent to the presenting complaint Exam Narrative: GENERAL: Mildly ill-appearing, well-nourished, and in no acute distress. HEAD: Normocephalic, atraumatic. EYES: EOMI. No rednes
== END 2023-02-21 13:00 | disposition home or self-care (01) ==
PROVIDERS: Emergency Provider Nurse Practitioner; PCP Family Medicine
DX: J06.9 Acute upper respiratory infection, unspecified (principal); J40 Bronchitis, not specified as acute or chronic; N80.9 Endometriosis, unspecified; I10 Essential (primary) hypertension; K21.9 Gastro-esophageal reflux disease without esophagitis; E78.2 Mixed hyperlipidemia; E66.9 Obesity, unspecified; Z68.37 Body mass index [BMI] 37.0-37.9, adult; I48.0 Paroxysmal atrial fibrillation; F33.9 Major depressive disorder, recurrent, unspecified
CPT/HCPCS: 99213; G0463

== ENCOUNTER 2023-03-01 11:31 | Emergency (ER) | payer MEDICARE, OTHER, SELFPAY ==
--- NOTE | ~2023-03-01 | XR_ITS ---
EXAMINATION: XR chest 2V DATE: 03/01/2023 14:06 INDICATION: Productive cough TECHNIQUE: PA and lateral views of the chest were obtained. COMPARISON: Chest radiograph dated 11/26/2020 FINDINGS: The lungs remain clear with no focal airspace opacities, pulmonary edema, pleural effusion or pneumot horax. The cardiomediastinal silhouette is normal. Moderate thoracic spondylosis. Cholecystectomy cli ps in the right upper quadrant. IMPRESSION: 1. No acute cardiopulmonary disease. Reviewed, dictated and finalized at location A. AL WAITER/WAITRESS
[2023-03-01 11:36] VITALS: BP 159/87; PULSE 78; RESP 20; TEMP 36.1; O2SAT 95
[2023-03-01 13:27] VITALS: O2SAT 93
[2023-03-01 13:28] VITALS: BP 139/102; PULSE 85; RESP 20; TEMP 36.4; O2SAT 93
--- NOTE | 2023-03-01 14:31 | ED.URI ---
HPI - URI/Sore Throat General Chief Complaint: Upper Respiratory Infection Stated Complaint: SOB- Time Seen by Provider: 03/01/23 13:52 Source: patient and RN notes reviewed Mode of arrival: ambulatory Limitations: no limitations History of Present Illness HPI Narrative: This is a 68 year old female who presents for evaluation of a cough. She states she has had a cough for 1.5 weeks. She reports cough with white phlegm. She also reports nasal congestion and postnasal drainage. She was evaluated at urgent care and she was prescribed Augmentin, steroids, albuterol and codeine for her symptoms. She states her symptom have not worsened but they have not improved. She denies chest pain, shortness of breath, nausea, vomiting or fever. She had diarrhea after taking the antibiotics. Related Data Home Medications Medication Instructions Recorded Confirmed pravastatin 10 mg tablet 10 mg PO DAILY 11/24/22 02/21/23 venlafaxine 75 mg capsule,extended 75 mg PO DAILY 11/24/22 02/21/23 release 24 hr Allergies Allergy/AdvReac Type Severity Reaction Status Date / Time lisinopril AdvReac Intermediate Cough Verified 02/21/23 12:23 tramadol AdvReac Intermediate emesis Verified 02/21/23 12:23 Review of Systems Constitutional: Constitutional: Denies weakness ENT: Reports nasal congestion Cardiovascular: Cardiovascular: Denies syncope, Denies rapid heart rate, Denies irregular heart rhythm, Denies leg edema and Denies dyspnea Respiratory: Respiratory: Denies chest congestion, Reports cough, Denies hemoptysis, Denies excessive phlegm production and Denies dyspnea Gastrointestinal: Gastrointestinal: Denies abdominal pain, Denies hematochezia, Denies diarrhea and Denies vomiting Genitourinary: Genitourinary: Denies hematuria and Reports dysuria Musculoskeletal: Musculoskeletal: Denies joint swelling, Denies loss of height and Denies muscle weakness Neurologic: Denies syncope, Denies focal weakness and Denies weakness [facility] Past Medical History Medical History A-fib Anxiety BMI 39.0-39.9,adult Bronchitis Depression Endometriosis Essential hypertension GERD (gastroesophageal reflux disease) H/O: HTN (hypertension) History of rectal polyps Hypersomnia Mixed hyperlipidemia Moderate episode of recurrent major depressive disorder Obesity Obstructive sleep apnea (01/2020) PAF (paroxysmal atrial fibrillation) Psychophysiological insomnia Right wrist fracture Sinusitis, chronic Sleep disorder Subacute sinusitis Surgical History Surgical History History of cholecystectomy History of lumpectomy of right breast History of tonsillectomy Hx of hysterectomy Family History Family History Mother Family history of malignant neoplasm, Onset Age: 64 Father FH myocardial infarction male first degree age known, Onset Age: 75 Social History Social History Social History: Smoking status: Never smoker Second hand tobacco smoke exposure: No Alcohol intake: never Substance use: never Substance use type: does not use Lack of Transportation: No Lack of Food: Never True Current Housing: I Have Housing Concerned About Future Housing: No Difficulty Paying Gas/Electric Bills: No Difficulty Paying for Meds: No Currently Unemployed: YES Education: Decline to Answer Difficulty w/ Childcare or Family Care: No Living arrangements: alone Occupation/Education: retired Gender identity (if verbalized by the patient): Female Sexual Orientation (if Verbalized by the Patient): Straight or Heterosexual Spiritual care concerns: No Exam Const: General: no acute distress and alert Nutritional Appearance: well nourished Orientation/consciousness: patient oriented x3 Call
[2023-03-01 14:44] VITALS: BP 141/97; PULSE 73; RESP 18; O2SAT 95
== END 2023-03-01 14:46 | disposition home or self-care (01) ==
LOC: ANHED 14:39
PROVIDERS: Emergency Provider General Practice; PCP Family Medicine
DX: J20.9 Acute bronchitis, unspecified (principal); I10 Essential (primary) hypertension; E78.2 Mixed hyperlipidemia; I48.0 Paroxysmal atrial fibrillation
CPT/HCPCS: 71046; 99283

== ENCOUNTER 2024-03-14 14:34 | Outpatient (CLI) | payer MEDICARE, OTHER, SELFPAY ==
--- NOTE | ~2024-03-14 | MM_ITS ---
EXAMINATION: MM screening [facility] BI w lexis HISTORY: Screening mammogram TECHNIQUE: Craniocaudal and mediolateral oblique 3-D tomosynthesis images were obtained and synthetic 2-D images were generated. CAD analysis was submitted and interpreted. COMPARISON: 06/05/2022, 09/25/2020, 12/21/2018, 11/10/2018 BREAST PARENCHYMAL COMPOSITION:Not Dense. There are scattered areas of fibroglandular density. FINDINGS: Bilateral benign calcifications are present. No suspicious mass, calcification, or architec tural distortion are identified in either breast to suggest malignancy. There has been no suspicious interval change. IMPRESSION: No mammographic evidence of malignancy. Recommend routine screening mammography in one year. BI-RADS Category 2: Benign finding(s). Reviewed, dictated and finalized at [facility]. RATOR OPERATOR
== END 2024-03-14 14:35 | disposition home or self-care (01) ==
LOC: MICIMG 14:35
PROVIDERS: PCP Family Medicine; Visit Provider Physician Assistant
DX: Z12.31 Encounter for screening mammogram for malignant neoplasm of breast (principal)
CPT/HCPCS: 77063; 77067

== ENCOUNTER 2024-04-11 12:41 | Outpatient (CLI) | payer MEDICARE, OTHER, SELFPAY ==
--- NOTE | 2024-04-11 12:56 | ECG_ITS ---
Test Date: 2024-04-11 13:11:45 Measurements Intervals [place] Rate: 71 P: -21 [place]: 152 QRS: 20 QRSD: 101 T: 47 QT: 402 QTc: 439 Interpretive Statements SINUS RHYTHM No previous ECG available for comparison Electronically Signed On 04-11-2024 13:13:33 FILLING STATION LABORER by Francisco J Celis M.D.
== END 2024-04-11 12:42 | disposition home or self-care (01) ==
PROVIDERS: PCP Family Medicine; Visit Provider Internal Medicine Cardiovascular Disease
DX: R06.02 Shortness of breath (principal)
CPT/HCPCS: 93005

== ENCOUNTER 2024-04-22 12:55 | Outpatient (CLI) | payer MEDICARE, OTHER, SELFPAY ==
--- NOTE | 2024-04-22 13:03 | ECHO_ITS ---
Patient Info Name: Tiffanie Cantu Age: 69 years : 1955 Gender: Female Ht: 65 in Wt: 220 lbs BSA: 2.18 m2 HR: 71 bpm BP: 140 / 86 mmHg Heart Rhythm: Sinus Rhythm Technical Quality: Fair Exam Date: 04/22/2024 1:05 PM Exam Location: Echo Lab Patient Status: Outpatient Admit Date: 04/22/2024 Staff Ordering Physician: Tigre Fernández DO Rigging Engineer: Sabra Deluca RDCS Attending Provider: Tigre Fernández DO Referring Physician: Pradeep KEATING; Exam Type: CA echo doppler color flow Study Info Indications R06.02 - Shortness of breath Complete two-dimensional, color flow and Doppler transthoracic echocardiogram is performed. Summary 1. Complete two-dimensional, color flow and Doppler transthoracic echocardiogram is performed. 2. hyperdynamic LV with LVEF 72% and mild LVH, trace MR, mild LAE. Left Ventricular Outflow Tract Name Value Normal LVOT 2D LVOT Diameter 2.0 cm LVOT Doppler LVOT Peak Gradient 6 mmHg LVOT Mean Gradient 3 mmHg LVOT VTI 23 cm LVOT VTI/AV VTI Ratio 0.9 LVOT Stroke Volume 72 ml LVOT CO 4.6 l/min LVOT CI 2.1 l/min/m2 Pulmonic Valve Name Value Normal RVOT Doppler RVOT Peak Gradient 4 mmHg PV Doppler PV Peak Gradient 7 mmHg Mitral Valve Name Value Normal MV Doppler MV Decel [place] 303 cm/s2 MV PHT 58 ms MV Area (PHT) 3.8 cm2 4.0-5.0 MV Diastolic Function MV E Peak Velocity 61 cm/s MV A Peak Velocity 88 cm/s MV E/A 0.7 MV Decel Time 199 ms MV Annular TDI MV E/e' (Septal) 11.8 <=8.0 MV E/e' (Lateral) 11.1 <=8.0 MV E/e' (Average) 11.5 Tricuspid Valve Name Value Normal TV Regurgitation Doppler TR Peak Velocity 161 cm/s TR Peak Gradient 10 mmHg Estimated PAP/RSVP RA Pressure 10 mmHg <=5 PA Systolic Pressure 20 mmHg <36 RV Systolic Pressure 20 mmHg <36 Aorta Name Value Normal Ascending Aorta Ao Root Diameter (MM) 3.5 cm Ao Root Diam Index (MM) 1.6 cm/m2 Aortic Valve Name Value Normal AV Doppler AV Peak Velocity 168 cm/s AV Peak Gradient 11 mmHg AV Mean Gradient 5 mmHg AV VTI 27 cm AV Area (Cont Eq VTI) 2.7 cm2 >=3.0 AV Area (Cont Eq Harrison) 2.3 cm2 AV Regurgitation 2D LVOT Area 3.1 cm2 Ventricles Name Value Normal LV Dimensions 2D/MM IVS Diastolic Thickness (2D) 1.3 cm 0.6-1.0 LVID Diastole (2D) 3.4 cm 3.8-5.2 LVIW Diastolic Thickness (2D) 1.1 cm 0.6-0.9 LVID Systole (2D) 2.4 cm 2.2-3.5 LVOT Diameter 2.0 cm LV Mass (2D Cubed) 132.26 g 67.00-162.00 LV Mass Index (2D Cubed) 61 g/m2 43-95 Relative Wall Thickness (2D) 0.65 LV Fractional Shortening/Ejection Fraction 2D/MM LV Fractional Shortening (2D) 29 % 27-45 LV EF (2D Teicholz) 57 % 54-74 LV Diastolic Volume (4C MOD) 49 ml LV EF (4C MOD) 69 % LV Diastolic Volume (2C MOD) 31 ml LV EF (2C MOD) 74 % LV Diastolic Volume (BP MOD) 41 ml 46-106 LV Diastolic Volume Index (BP MOD) 19 ml/m2 29-61 LV Systolic Volume (BP MOD) 11 ml 14-42 LV Systolic Volume Index (BP MOD) 5 ml/m2 8-24 LV EF (BP MOD) 72 % 54-74 LV Diastolic Length (4C) 7.6 cm LV Systolic Length (4C) 6.5 cm LV Stroke Volume (4C MOD) 34 ml Atria Name Value Normal LA Dimensions LA Dimension (MM) 4.0 cm 2.7-3.8 LA Volume (4C A-L) 39 ml LA Volume (BP A-L) 46 ml RA Dimensions RA Area (4C) 12.9 cm2 <=18.0 Report Signatures
== END 2024-04-22 12:56 | disposition home or self-care (01) ==
LOC: ANHCARD 12:56
PROVIDERS: PCP Family Medicine; Visit Provider Internal Medicine Cardiovascular Disease
DX: I51.7 Cardiomegaly (principal)
CPT/HCPCS: 93306